=== PATIENT | female | born 1995 | race African-American/Black ===

== ENCOUNTER 2018-01-17 02:08 | Emergency (ER) | payer OTHER ==
[~2018-01-17] VITALS: Ht 162.6 cm; Wt 66.5 kg
[2018-01-17 02:15] VITALS: TEMP 36.8; Ht 162.6 cm; Wt 66.5 kg
[2018-01-17 02:16] VITALS: O2SAT 96
--- NOTE | 2018-01-17 02:18 | EMERGENCY ROOM VISIT NOTE ---
History Report prepared by Remberto: Jose Williamson Under the Supervision of: Dr. Brandon Barton M.D. First contact with patient: 02:12 Chief Complaint: ALCOHOL OVERDOSE Stated Complaint: ALCOHOL OVERDOSE History of Present Illness The patient is a 22 year old female who presents to the Emergency Room with an alcohol overdose. EMS states the patient stood up and sat on the litter. Nursing staff reports the patient was at home, and her friends could not wake her up. They note the patient was out drinking. HPI limited secondary to the patient's alcohol intoxication. Source of History: EMS, nursing staff History Limited By: intoxication Review of Systems ROS limited secondary to the patient's alcohol intoxication. Past Medical & Surgical Unobtainable secondary to the patient's alcohol intoxication. Family History Unobtainable secondary to the patient's alcohol intoxication. Social History Alcohol Use: heavy Occupation Status: [employer] Current/Historical Medications Unable to Obtain Active Prescriptions or Reported Meds Physical Exam Vital Signs Date Time Temp Pulse Resp B/P (MAP) Pulse Ox O2 Delivery O2 Flow Rate FiO2 01/17/18 08:42 78 16 103/80 99 Room Air 01/17/18 06:42 71 12 86/43 96 Room Air 01/17/18 06:12 70 01/17/18 05:30 78 14 94/52 93 Room Air 01/17/18 04:23 72 12 93 Room Air 01/17/18 04:00 72 12 94/52 95 Room Air 01/17/18 03:00 75 14 97 Room Air 01/17/18 02:16 96 Room Air 01/17/18 02:16 95 Room Air 01/17/18 02:15 36.8 81 18 103/59 95 Room Air Physical Exam Vital signs reviewed. General: Odor of EtOH in the breath, disheveled 22-year-old female. No signs of trauma. HEENT: Mild scleral injection bilaterally, PERRLA, neck supple, dry mucous membranes. Cardiovascular: Regular rate and rhythm, no extra sounds. Pulmonary: Clear to auscultation bilaterally, normal work of breathing. Abdomen: Soft, nontender, nondistended, positive bowel sounds. Musculoskeletal: Upper and lower extremities atraumatic, no peripheral edema Skin: Warm, dry, no rash. Atraumatic. Neurologic: Patient is currently nonverbal. Medical Decision & Procedures Laboratory Results 01/17/18 02:23 Test 01/17/18 02:23 Anion Gap 9.0 mmol/L (3-11) Est Creatinine Clear Calc Drug Dose 110.8 ml/min Estimated GFR () 130.9 Estimated GFR (Non- 112.9 BUN/Creatinine Ratio 8.6 (10-20) Calcium Level 8.1 mg/dl (8.5-10.1) Human Chorionic Gonadotropin, Qual NEG (NEG) Ethyl Alcohol mg/dL 201.0 mg/dl (0-3) Labs reviewed by ED physician. ED Course 0214: Past medical records reviewed. The patient was evaluated in room B03A. A complete history and physical examination was performed. 0621: Upon reexamination the patient is resting. I discussed results and treatment plan with the patient. She verbalizes agreement and understanding. The patient is ready for discharge. Medical Decision Differential diagnosis: Etiologies such as alcohol intoxication, toxicologic, infection, hypoglycemia, electrolyte abnormalities, cardiac sources, intracerebral event, neurologic, as well as others were entertained. This is a 22-year-old female presents emergency department after drinking this evening. Chief Complaint: Alcohol overdose. History of Present Illness: Pt is a xxx male who presents into the ED via ambulance for alcohol intoxication. EMS was summons and she was brought into the ED for evaluation. EMS reports patient was stable but did have one episode of vomiting en route. She was unable to provide any initial information due to her unresponsive state. Initially she was minimally responsive to painful stimuli, but she was breathing and did not appear to be in any acute distress, with stable vital signs. Medical Decision Makin22 year old female brought in for presumably alcohol intoxication. Initial history limited as she was not able to answer questions. She was monitored and an alcohol level was obtained; . We did watch her for several hours throughout the night and she was able to maintain her own airway. After some time she did awaken. I was able to obtain a full history and physical. There is no evidence of other toxic ingestions, trauma, anemia, hypoglycemia, head injury, intracranial pathology, meningitis, encephalitis, acute intrathoracic or abdominal pathologies or other metabolic conditions. Prior to discharge she was able to ambulate without assistance. Medication Reconcilliation Current Medication List: was personally reviewed by me Blood Pressure Screening Patient's blood pressure: Normal blood pressure Blood pressure disposition: Did not require urgent referral Impression Primary Impression: Alcoholic intoxication Scribe Attestation The scribe's documentation has been prepared under my direction and personally reviewed by me in its entirety. I confirm that the note above accurately reflects all work, treatment, procedures, and medical decision making performed by me. Departure Information Dispostion Home / Self-Care Prescriptions Unable to Obtain Active Prescriptions or Reported Meds Forms HOME CARE DOCUMENTATION FORM, IMPORTANT VISIT INFORMATION Patient Instructions Alcohol Intoxication - [facility], My [facility] Additional Instructions STRONGLY recommend you discuss this visit with your parents MARSHALL= .20 @ 0200 (Sober @ 0900) You have been examined and treated today on an emergency basis only. This is not a substitute for, or an effort to provide, complete comprehensive medical care. It is impossible to recognize and treat all injuries or illnesses in a single emergency department visit. It is therefore important that you follow up closely with [facility]. Call as soon as possible for an appointment. Thank you for your time and consideration. I look forward to speaking with you again soon. Please don't hesitate to call us if you have any questions. Problem Qualifiers Primary Impression: Alcoholic intoxication Complication of substance-induced condition: uncomplicated Qualified Codes: F10.920 - Alcohol use, unspecified with intoxication, uncomplicated
[2018-01-17 03:11] LABS: CALCIUM 8.1 mg/dl (8.5-10.1); CREATININE 0.76 mg/dl (0.60-1.20); POTASSIUM 3.5 mmol/L (3.5-5.1)
[2018-01-17 08:42] VITALS: BP 103/80; PULSE 78; O2SAT 99
== END 2018-01-17 09:00 | disposition home or self-care (01) ==
LOC: EDBD 02:08 → C.EDB 02:10
DX: F10.129 Alcohol abuse with intoxication, unspecified (principal)